=== PATIENT | female | born 1950 | race Caucasian/White ===

== ENCOUNTER 2016-11-16 06:39 | Emergency (ER) | payer OTHER ==
[2016-11-16] MEDS ORDERED: NS 1,000 ML IV ONE ×2 (07:02→07:31)
--- NOTE | 2016-11-16 07:09 | CPEKG ---
Heart Rate: 76 RR Interval: 789 P-R Interval: 156 QRSD Interval: 80 QT Interval: 424 QTC Interval: 477 P [place]: 0 QRS [place]: 26 T Wave [place]: 43 EKG Severity - NORMAL ECG - EKG Impression: SINUS RHYTHM Electronically Signed By: Tony Lopez 16-Nov-2016 12:43:51
--- NOTE | 2016-11-16 07:18 | EDPHY ---
H & P HPI/ROS: Chief complaint. Abdominal pain HPI. 65-year-old female presents emergency department with 4 day history of abdominal pain vomiting and diarrhea. She has periumbilical acid type feeling that radiates through the upper abdomen and behind her sternum. She has been vomiting fluids. Yesterday she was better and mobile lawn. And then again in the afternoon developed vomiting and diarrhea. It is described as periumbilical burning radiating behind sternum. No radiation to back. She has no abdominal or chest discomfort now. Denies that she has had shortness of breath or fever. Her symptoms are worse with lying down in eating. She had a knee replacement 3 weeks ago and finished antibiotics about 1 week ago. Denies fever. No blood in diarrhea. ROS Constitutional. no fever/chills, no weakness Eyes. no problems with vision ENT. no sore throat, no nasal drainage Cardiovascular. Retrosternal burning type pain Respiratory. no shortness of breath, no cough Abdominal. Periumbilical burning pain with vomiting diarrhea . no problems urinating MS. no calf pain/swelling, no neck/back pain, no joint pain Skin. no rash Lymph. no swollen glands Neuro. no headache, no dizziness, no difficulty walking or with speech Past Medical/Surgical History: Past medical history is significant for bilateral knee replacements, hypertension, neck cancer, dyslipidemia Social History: , nonsmoker, no alcohol Smoking Status: Never smoked Physical Exam: General Appearance: Alert pleasant well-developed female mild distress vital signs significant for blood pressure 176/105 Eyes: Pupils equal and round no pallor or injection. ENT, Mouth: Mucous membranes are moist. Respiratory: There are no retractions, lungs are clear to auscultation. Cardiovascular: Regular rate and rhythm. Gastrointestinal: Abdomen is soft and nontender, no masses, bowel sounds normal. Neurological: Awake and alert, sensory and motor exams grossly normal. Skin: Warm and dry, no rashes. Musculoskeletal: Neck is supple nontender. Extremities symmetrical, full range of motion. Psychiatric: Patient is oriented X 3, there is no agitation. Constitutional: Initial Vital Signs Temperature (C) 36.5 C 11/16/16 06:57 Heart Rate 86 11/16/16 06:57 Respiratory Rate 18 11/16/16 06:57 Blood Pressure 176/105 H 11/16/16 06:57 O2 Sat (%) 95 11/16/16 06:57 O2 Delivery Mode Room Air Allergies/Adverse Reactions: codeine Allergy (Verified 11/16/16 06:54) Home Medications: Medication Instructions Recorded Aspirin [Aspirin 81mg (*)] 162 mg PO DAILY 11/16/16 Atorvastatin Calcium [Lipitor 40 11/16/16 mg (*)] Cephalexin [Keflex (*)] 500 mg PO TID #21 cap 11/16/16 Chlorthalidone [Chlorthalidone 25 25 mg PO 11/16/16 mg (*)] Metoprolol Tartrate 75 mg PO 11/16/16 Ondansetron Odt [Zofran Odt] 4 mg PO Q4PRN PRN #4 tab 11/16/16 Medical Decision Making - Diagnostics EKG Interpretation: EKG interpreted by me shows normal sinus rhythm with normal interval and axis. QRS is normal there is no significant ST elevation or depression. No arrhythmia. The rate is 76 Procedures: IV normal saline. Patient declines medication for nausea for pain or diarrhea as she is not having any symptoms now ED Course/Re-evaluation: Recheck at 8:05 a.m.. Patient and I reviewed her labs. We talked about low potassium. We talked about potassium replacement. She is given 20 mEq of potassium orally Patient tells me that she has had low potassium and both her regular PCP and repulping supervisor have put her on potassium and recommended supplement. However because of her knee surgery 3 weeks ago she has not been taking her potassium supplement. Patient has prescription and potassium supplement medication at home. Up to the bathroom to urinate Recheck again at 9:15 a.m.. The patient, her , and I discussed EKG and lab results. We discussed treatment plan including criteria for return and importance of follow-up and further evaluation. She expresses understanding agreement Patient has no nausea or vomiting. No diarrhea and has been unable to produce a stool sample. She has no abdominal pain. She has no chest pain or shortness of breath Differential Diagnosis: I considered dehydration, electrolyte abnormalities, GERD, acute coronary syndrome. - Data Points Laboratory Results: Laboratory Results 11/16/16 07:20 11/16/16 07:20 11/16/16 11/16/16 11/16/16 08:35 07:20 07:20 WBC RBC Hgb Hct MCV MCH MCHC RDW Plt Count MPV Neut % (Auto) Lymph % (Auto) [place] % (Auto) Eos % (Auto) Baso % (Auto) Nucleat RBC Rel Count Absolute Neuts (auto) Absolute Lymphs (auto) Absolute Monos (auto) Absolute Eos (auto) Absolute Basos (auto) Absolute Nucleated RBC Immature Gran % Immature Gran # Sodium 138 mEq/L mEq/L (134-144) Potassium 2.9 mEq/L L mEq/L (3.5-5.2) Chloride 96 mEq/L L mEq/L (97-110) Carbon Dioxide 24 mEq/l mEq/l (22-31) Anion Gap 18 mEq/L H mEq/L (8-16) BUN 21 mg/dL mg/dL (7-23) Creatinine 0.5 mg/dL L mg/dL (0.6-1.0) Estimated GFR > 60 Glucose 111 mg/dL H mg/dL (70-100) Calcium 9.8 mg/dL mg/dL (8.5-10.4) Troponin I 0.013 ng/mL ng/mL (0.000-0.034) Lipase 221 IU/L IU/L (23-300) Urine Color YELLOW Urine Appearance CLEAR Urine pH 6.5 (5.0-7.5) Ur Specific [place] 1.010 (1.002-1.030) Urine Protein NEGATIVE (NEGATIVE) Urine Ketones 1+ H (NEGATIVE) Urine Blood NEGATIVE (NEGATIVE) Urine Nitrate NEGATIVE (NEGATIVE) Urine Bilirubin NEGATIVE (NEGATIVE) Urine Urobilinogen 0.2 EU EU (0.2-1.0) Ur Leukocyte Esterase 1+ H (NEGATIVE) Urine RBC 10-15 /hpf H /hpf (0-3) Urine WBC 15-25 /hpf H /hpf (0-3) Ur Epithelial Cells 1+ /lpf /lpf (NONE-1+) Amorphous Sediment 1+ /hpf /hpf (NONE-1+) Urine Bacteria 1+ /hpf H /hpf (NONE SEEN) Urine Mucus 2+ /lpf H /lpf (NONE-1+) Urine Glucose NEGATIVE (NEGATIVE) 11/16/16 07:20 WBC 11.10 10^3/uL H 10^3/uL (3.80-9.50) RBC 4.85 10^6/uL 10^6/uL (4.18-5.33) Hgb 14.2 g/dL g/dL (12.6-16.3) Hct 39.5 % % (38.0-47.0) MCV 81.4 fL L fL (81.5-99.8) MCH 29.3 pg pg (27.9-34.1) MCHC 35.9 g/dL g/dL (32.4-36.7) RDW 12.4 % % (11.5-15.2) Plt Count 339 10^3/uL 10^3/uL (150-400) MPV 9.7 fL fL (8.7-11.7) Neut % (Auto) 77.5 % H % (39.3-74.2) Lymph % (Auto) 15.7 % % (15.0-45.0) [place] % (Auto) 5.6 % % (4.5-13.0) Eos % (Auto) 0.3 % L % (0.6-7.6) Baso % (Auto) 0.6 % % (0.3-1.7) Nucleat RBC Rel Count 0.0 % % (0.0-0.2) Absolute Neuts (auto) 8.61 10^3/uL H 10^3/uL (1.70-6.50) Absolute Lymphs (auto) 1.74 10^3/uL 10^3/uL (1.00-3.00) Absolute Monos (auto) 0.62 10^3/uL 10^3/uL (0.30-0.80) Absolute Eos (auto) 0.03 10^3/uL 10^3/uL (0.03-0.40) Absolute Basos (auto) 0.07 10^3/uL 10^3/uL (0.02-0.10) Absolute Nucleated RBC 0.00 10^3/uL 10^3/uL (0-0.01) Immature Gran % 0.3 % % (0.0-1.1) Immature Gran # 0.03 10^3/uL 10^3/uL (0.00-0.10) Sodium Potassium Chloride Carbon Dioxide Anion Gap BUN Creatinine Estimated GFR Glucose Calcium Troponin I Lipase Urine Color Urine Appearance Urine pH Ur Specific [place] Urine Protein Urine Ketones Urine Blood Urine Nitrate Urine Bilirubin Urine Urobilinogen Ur Leukocyte Esterase Urine RBC Urine WBC Ur Epithelial Cells Amorphous Sediment Urine Bacteria Urine Mucus Urine Glucose Medications Given: Discontinued Medications Sodium Chloride (Ns) 1,000 mls @ 0 mls/hr IV EDNOW ONE; Wide Open PRN Reason: Protocol Stop: 11/16/16 07:03 Last Admin: 11/16/16 07:35 Dose: 1,000 mls Sodium Chloride (Ns) 1,000 mls @ 0 mls/hr IV EDNOW ONE; Wide Open PRN Reason: Protocol Stop: 11/16/16 07:32 Last Admin: 11/16/16 08:47 Dose: 1,000 mls Magnesium Sulfate/Dextrose (Magnesium Sulf 1 Gm (Premix)) 100 mls @ 100 mls/hr IV EDNOW ONE Stop: 11/16/16 09:04 Last Admin: 11/16/16 08:28 Dose: 100 mls Ibuprofen (Motrin) 800 mg PO EDNOW ONE Stop: 11/16/16 08:11 Last Admin: 11/16/16 08:45 Dose: 800 mg Potassium Chloride (Potassium Chloride Oral Liquid) 20 meq PO EDNOW ONE Stop: 11/16/16 08:35 Last Admin: 11/16/16 08:59 Dose: Not Given Departure - Departure Disposition: Home, Routine, Self-Care Clinical Impression: Vomiting and diarrhea, Hypokalemia Urinary tract infection Qualifiers: Urinary tract infection type: acute cystitis Hematuria presence: without hematuria Qualified Code(s): N30.00 - Acute cystitis without hematuria Condition: Good Instructions: Urinary Tract Infection in Women (ED), Hypokalemia (ED) Additional Instructions: Start taking her potassium supplements again. Frequent, small sips fluids well nauseated. Gradual diet advancement. Cephalexin as antibiotic for urinary tract infection. Return for worsening symptoms. Recheck on Saturday by your regular physician and have potassium level rechecked Zofran if needed for nausea. Return over the weekend for worsening abdominal or chest pain. Referrals: Unknown,Unknown [Primary Care Provider] - As per Instructions Prescriptions: Cephalexin [Keflex (*)] 500 mg PO TID #21 cap Ondansetron Odt [Zofran Odt] 4 mg PO Q4PRN PRN #4 tab PRN Reason: Nausea/Vomiting, Use 1st
[2016-11-16 07:30] LABS: % IMMATURE GRANULYOCYTES 0.3 % (0.0-1.1); ABSOLUTE IMMATURE GRANULOCYTES 0.03 10^3/uL (0.00-0.10); ADD DIFF? NO; ADD MORPH? NO; ADD SCAN? NO; ATYPICAL LYMPHOCYTE FLAG 0 (0-99); FRAGMENT RBC FLAG 0 (0-99); HEMATOCRIT 39.5 % (38.0-47.0); HEMOGLOBIN 14.2 g/dL (12.6-16.3); LEFT SHIFT FLG 0 (0-99); LIPEMIA HEMOLYSIS FLAG 90 (0-99); MEAN CELL HEMOGLOBIN 29.3 pg (27.9-34.1); MEAN CELL HEMOGLOBIN CONCENTR. 35.9 g/dL (32.4-36.7); MEAN CELL VOLUME 81.4 fL (81.5-99.8); MEAN PLATELET VOLUME 9.7 fL (8.7-11.7); PLATELET CLUMPS FLAG 0 (0-99); PLATELET COUNT 339 10^3/uL (150-400); RED BLOOD CELL COUNT 4.85 10^6/uL (4.18-5.33); RED CELL DISTRIBUTION WIDTH 12.4 % (11.5-15.2)
[2016-11-16 07:43] LABS: ANION GAP 18 mEq/L (8-16); CALCIUM 9.8 mg/dL (8.5-10.4); CARBON DIOXIDE 24 mEq/l (22-31); CHLORIDE 96 mEq/L (97-110); CREATININE 0.5 mg/dL (0.6-1.0); GLOMERULAR FILTRATION RATE > 60; GLUCOSE 111 mg/dL (70-100); POTASSIUM 2.9 mEq/L (3.5-5.2); SODIUM 138 mEq/L (134-144)
[2016-11-16 07:58] LABS: TROPONIN I 0.013 ng/mL (0.000-0.034)
[2016-11-16] MEDS ORDERED: POTASSIUM CL 20 MEQ TAB PO ONE ×2 (08:04→08:57)
[2016-11-16] MEDS ORDERED: MAGNESIUM SULF 1 GM/DEXTROSE 100 ML IV ONE (08:05)
[2016-11-16] MEDS ORDERED: IBUPROFEN 200 MG TAB PO ONE (08:10)
[2016-11-16 08:43] LABS: COLOR YELLOW; LEUKOCYTE ESTERASE,URINE 1+ (NEGATIVE); NITRITE,URINE NEGATIVE (NEGATIVE); PH,URINE 6.5 (5.0-7.5)
[2016-11-16] MEDS: POTASSIUM CL 20 MEQ/15 ML UDCUP PO ONE ×2 (08:48→08:59)
[2016-11-16 08:53] VITALS: O2SAT 93
[2016-11-16 09:04] LABS: AMORPHOUS 1+ /hpf (NONE-1+); BACTERIA 1+ /hpf (NONE SEEN); MUCUS 2+ /lpf (NONE-1+); WBC,URINE 15-25 /hpf (0-3)
[2016-11-16] MEDS ORDERED: POTASSIUM CL 20 MEQ/15 ML UDCUP PO ONE (09:06)
[2016-11-16 10:01] VITALS: BP 131/71; PULSE 77; RESP 18; TEMP 98.4
== END 2016-11-16 09:45 | disposition home or self-care (01) ==
LOC: CED 06:39
DX: N30.00 Acute cystitis without hematuria (principal); E87.6 Hypokalemia; R19.7 Diarrhea, unspecified; E86.9 Volume depletion, unspecified; I10 Essential (primary) hypertension; Z79.82 Long term (current) use of aspirin; Z85.89 Personal history of malignant neoplasm of other organs and systems
CPT/HCPCS: 80048-PO; 81003-PO; 81015-PO; 83690-PO; 84484-PO; 85025-PO; 96365; J3475

== ENCOUNTER → 2016-11-21 | Outpatient (CLI) | payer OTHER | LOC: FIMAGING 07:52 | PROVIDERS: ATTEND Family Medicine | DX: Z12.31 Encounter for screening mammogram for malignant neoplasm of breast (principal); Z80.3 Family history of malignant neoplasm of breast | CPT/HCPCS: G0202 ==

== ENCOUNTER → 2017-12-20 | Outpatient (CLI) | payer OTHER | LOC: FIMAGING 08:44 | PROVIDERS: ATTEND Family Medicine | DX: Z12.31 Encounter for screening mammogram for malignant neoplasm of breast (principal); Z80.3 Family history of malignant neoplasm of breast ==

== ENCOUNTER → 2017-12-31 | Outpatient (CLI) | payer OTHER | LOC: FIMAGING 11:17 | PROVIDERS: ATTEND Family Medicine | DX: R92.8 Other abnormal and inconclusive findings on diagnostic imaging of breast (principal) ==